=== PATIENT | female | born 1975 | race Caucasian/White ===

== ENCOUNTER 2018-06-29 22:19 | Emergency (ER) | payer MEDICAID ==
[2018-06-30] MEDS: SOD CHLORIDE 0.9% 1,000 ML IV (00:55)
[2018-06-30] MEDS: ACETAMINOPHEN 325 MG TAB PO (00:57)
== END 2018-06-30 02:31 | disposition home or self-care (01) ==
LOC: FTE 22:19
DX: R50.9 Fever, unspecified (principal)
CPT/HCPCS: 87400; 96360; 99284-25